=== PATIENT | male | born 1990 | race Caucasian/White ===

== ENCOUNTER 2018-10-03 11:56 | Emergency (ER) | payer SELFPAY ==
[2018-10-03] MEDS ORDERED: COLCHICINE 0.6 MG TABLET PO ONE ×2 (12:35→13:30)
--- NOTE | 2018-10-03 13:07 | RADIOLOGY REPORT (SQ) ---
EXAM DESCRIPTION: FOOT RIGHT COMPLETE COMPLETED DATE/TIME: 10/03/2018 12:54 pm REASON FOR STUDY: crush injury r foot COMPARISON: None. NUMBER OF VIEWS: Three views. TECHNIQUE: AP, lateral and oblique radiographic images acquired of the right foot. LIMITATIONS: None. FINDINGS: MINERALIZATION: Normal. BONES: No acute fracture or dislocation. No worrisome bone lesions. JOINTS: No effusions. SOFT TISSUES: Minimal soft tissue swelling about the forefoot. No radiopaque foreign body. OTHER: No other significant finding. IMPRESSION: No acute bony abnormality. TECHNICAL DOCUMENTATION: JOB ID: [id number] All Rights Reserved Reading location - IP/workstation name: [email or web address]
--- NOTE | 2018-10-03 13:18 | ER Document Report ---
HPI - HPI Patient complains to provider of: Right foot pain Time Seen by Provider: 10/03/18 12:30 Onset/Duration: Persistent Quality of pain: Achy Pain Level: 3 Context: Patient presents complaining of pain to right foot for the past 3 days. Patient states 3 weeks ago he smashed the toe of this foot and only had localized toe pain that resolved. Patient complains of pain in a different location of his foot for the past 3 days. Associated Symptoms: Other - Right foot pain Exacerbated by: Movement, Walking Relieved by: Denies Similar symptoms previously: No Recently seen / treated by doctor: No - ROS ROS below otherwise negative: Yes Systems Reviewed and Negative: Yes All other systems reviewed and negative - CONSTITUTIONAL Constitutional: DENIES: Fever - MUSCULOSKELETAL Musculoskeletal: REPORTS: Extremity pain - right foot - DERM Skin Color: Normal, Erythema Skin Problems: None Past Medical History - General Information source: Patient - Social History Smoking Status: Current Every Day Smoker Smoking Education Provided: Yes Frequency of alcohol use: Occasional Drug Abuse: None Occupation: [employer] Family History: Reviewed & Not Pertinent Patient has suicidal ideation: No Patient has homicidal ideation: No Pulmonary Medical History: Reports: Hx Asthma Renal/ Medical History: Denies: Hx Peritoneal Dialysis Past Surgical History: Reports: Hx Cholecystectomy Vertical Provider Document - CONSTITUTIONAL Agree With Documented VS: Yes Exam Limitations: No Limitations General Appearance: WD/WN, No Apparent Distress - INFECTION CONTROL TRAVEL OUTSIDE OF THE [place] IN LAST 30 DAYS: No - HEENT HEENT: Atraumatic, Normocephalic - NECK Neck: Normal Inspection - RESPIRATORY Respiratory: No Respiratory Distress - CARDIOVASCULAR Pulses: Normal: Dorsalis pedis - MUSCULOSKELETAL/EXTREMETIES Musculoskeletal/Extremeties: MAEW, FROM, Tender - Tenderness and mild erythema to the right foot first metatarsal.. negative: Eccymosis - NEURO Level of Consciousness: Awake, Alert, Appropriate Motor/Sensory: No Motor Deficit - DERM Integumentary: Warm, Dry, No Rash Course - Re-evaluation Re-evalutation: 10/03/18 13:14 Patient with mild warmth and erythema to the first metatarsal of right foot. Patient denies a personal history of gout but does report a strong family history of gout. Patient reports distant trauma involving the great toe of that foot but no tenderness after the initial trauma to the right metatarsal. X-ray reviewed, no concern for fracture. Good return precautions discussed with patient. - Vital Signs Vital signs: Temp Pulse Resp BP Pulse Ox 98.8 F 78 18 127/80 H 96 10/03/18 12:03 10/03/18 12:03 10/03/18 12:03 10/03/18 12:03 10/03/18 12:03 Discharge - Discharge Clinical Impression: Right foot pain Gout attack Qualifiers: Gout site: foot Gout etiology: unspecified cause Laterality: right Qualified Code(s): M10.9 - Gout, unspecified Condition: Stable Disposition: HOME, SELF-CARE Instructions: Anti-Inflammatory Medication ([facility]), Gout ([facility]), Gout Diet ([facility]) Additional Instructions: Return immediately for any new or worsening symptoms Followup with your primary care provider, call tomorrow to make a followup appointment Avoid foods high in purine Prescriptions: Indomethacin [Indocin 50 Mg Capsule] 50 mg PO TID PRN #15 capsule PRN Reason: Forms: Smoking Cessation Education, Return to Work Referrals: [facility] [Provider Group] - Follow up as needed [facility] [Provider Group] - Follow up as needed
[2018-10-03 13:54] VITALS: BP 119/79
== END 2018-10-03 13:52 | disposition home or self-care (01) ==
LOC: ER 11:56
DX: M10.9 Gout, unspecified (principal); M79.671 Pain in right foot; J45.909 Unspecified asthma, uncomplicated; F17.200 Nicotine dependence, unspecified, uncomplicated
CPT/HCPCS: 99283

== ENCOUNTER 2020-03-12 13:02 | Emergency (ER) | payer OTHER ==
[2020-03-12] MEDS ORDERED: PREDNISONE 20 MG TABLET PO ONE (15:31)
[2020-03-12] MEDS ORDERED: IPRATROPIUM/ALBUTEROL 0.5-2.5 MG/3 ML AMPUL NEB ONE (15:31)
--- NOTE | 2020-03-12 15:35 | ER Document Report ---
ED General - General Chief Complaint: Congestion Stated Complaint: CONGESTION, COUGH Time Seen by Provider: 03/12/20 14:33 Mode of Arrival: Ambulatory Information source: Patient Notes: Patient is a 29-year-old male with history of reactive airway disease and tobacco abuse. Coming in after 3 to 5 days of bad productive cough, chest congestion, shortness of breath, wheezing. He also has decreasing smell and decreasing taste sensation. No fevers or shaking chills. No body aches. TRAVEL OUTSIDE OF THE [place] IN LAST 30 DAYS: No - Related Data Allergies/Adverse Reactions: No Known Allergies Allergy (Unverified 10/03/18 11:59) Past Medical History - Social History Smoking Status: Current Every Day Smoker Family History: Reviewed & Not Pertinent Pulmonary Medical History: Reports: Hx Asthma Renal/ Medical History: Denies: Hx Peritoneal Dialysis Past Surgical History: Reports: Hx Cholecystectomy Review of Systems - Review of Systems Notes: Constitutional: No fevers. No chills. EENT: No eye redness. No eye pain. No ear pain. No sore throat. Cardiovascular: No chest pain. No palpitations. Respiratory: + productive cough. +SOB Gastrointestinal: No abdominal pain. No nausea, vomiting, or diarrhea. Genitourinary: Atraumatic. No lesions. No pain. No discharge. Musculoskeletal: Atraumatic. No swelling. No deformities. Skin: No rash or lesions. Lymphatic: No swollen lymph nodes. Neurologic: No headache. No syncope. Psychiatric: No suicidal or homicidal ideation Physical Exam - Vital signs Vitals: Temp Pulse Resp BP Pulse Ox 98.1 F 76 18 113/66 92 03/12/20 13:54 03/12/20 13:54 03/12/20 13:54 03/12/20 13:54 03/12/20 13:54 - Notes Notes: General: Well-developed, well-nourished. In no acute distress. Non-toxic appear ing. Cardiac: Well-perfused. Regular rate and rhythm. No murmurs, rubs, or gallops. Pulmonary: No respiratory distress. No cyanosis. Wheezing and rhonchi bilaterally. Abdominal: Non-distended. Non-rigid. Bowels sounds are present in all four quadrants. No guarding or rebound. HEENT: Head is atraumatic. Conjunctivae not reddened. No tearing. PERRL. EOMI. Orbits atraumatic. No periorbital swelling or erythema. Oropharynx is without erythema, swelling, or exudates. Neck: Supple. No adenopathy. No meningismus. Dermatologic: Warm with good turgor. No rash. Atraumatic. Chest: Atraumatic. No chest wall tenderness to palpation. Musculoskeletal: Moves all extremities well. No range of motion deficits. no muscular or joint tenderness. No paraspinal muscle tenderness. no midline spinal tenderness or step-off. Genitourinary: Examination deferred Neurologic: No gross neurologic deficits. Psychiatric: Normal mood. Course - Re-evaluation Re-evalutation: 03/12/20 15:35 Patient with symptoms concerning for possible Covid. We will test him for Covid, get chest x-ray, prednisone and albuterol treatments. 03/12/20 17:02 Symptoms are vastly improved after treatment. Covid swab is pending. Auscultation reveals only minor occasional wheezes at the end of expiration. Chest x-ray negative for pneumonia. Will discharge home - Vital Signs Vital signs: Temp Pulse Resp BP Pulse Ox 98.1 F 76 18 113/66 92 03/12/20 13:54 03/12/20 13:54 03/12/20 13:54 03/12/20 13:54 03/12/20 13:54 Discharge - Discharge Clinical Impression: Person under investigation for COVID-19, Tobacco abuse Upper respiratory infection Qualifiers: URI type: unspecified URI Qualified Code(s): J06.9 - Acute upper respiratory infection, unspecified Condition: Good Disposition: HOME, SELF-CARE Instructions: COVID-19 Guidance for Persons Under Investigation, Upper Respiratory Illness ([facility]) Prescriptions: Prednisone [Deltasone 20 mg Tablet] 3 tab PO DAILY 5 Days #15 tablet Albuterol Sulfate [Proair HFA Inhalation Aerosol 8.5 gm MDI] 2 puff IH Q4H PRN #1 mdi PRN Reason: Azithromycin [Zithromax 250 mg Tablet] 250 mg PO ASDIR PRN #6 tablet PRN Reason: Forms: Smoking Cessation Education
--- NOTE | 2020-03-12 16:18 | RADIOLOGY REPORT (SQ) ---
EXAM DESCRIPTION: CHEST SINGLE VIEW IMAGES COMPLETED DATE/TIME: 03/12/2020 3:57 pm REASON FOR STUDY: prod cough, sob COMPARISON: None. TECHNIQUE: Single frontal radiographic view of the chest acquired. NUMBER OF VIEWS: One view. LIMITATIONS: None. FINDINGS: LUNGS AND PLEURA: No pneumothorax. No consolidation or pleural effusion. MEDIASTINUM AND HILAR STRUCTURES: No contour abnormalities. HEART AND VASCULAR STRUCTURES: Heart normal size. BONES: No acute findings. HARDWARE: None in the chest. OTHER: No other significant finding. IMPRESSION: NO ACUTE FINDINGS. TECHNICAL DOCUMENTATION: JOB ID: [id number] 2010 [employer]- All Rights Reserved Reading location - IP/workstation name: [email or web address]
[2020-03-12 17:23] VITALS: BP 116/70
== END 2020-03-12 17:23 | disposition home or self-care (01) ==
LOC: ER 13:02
DX: J06.9 Acute upper respiratory infection, unspecified (principal); R05 Cough; R43.8 Other disturbances of smell and taste; J45.909 Unspecified asthma, uncomplicated; R06.02 Shortness of breath; R09.89 Other specified symptoms and signs involving the circulatory and respiratory systems; F17.200 Nicotine dependence, unspecified, uncomplicated; Z20.828 Contact with and (suspected) exposure to other viral communicable diseases
CPT/HCPCS: 94640; 99284; 87635; 71045; J7512; C9803